=== PATIENT | male | born 1965 | race African-American/Black ===

== ENCOUNTER 2023-09-21 22:23 | Emergency (ER) | payer MEDICAID, OTHER ==
[~2023-09-21] VITALS: Ht 190.5 cm; Wt 84.0 kg
[2023-09-21 23:04] VITALS: O2SAT 100
[2023-09-22] MEDS ORDERED: KETOROLAC 15MG/ML VIAL IM ONE (00:30)
[2023-09-22] MEDS ORDERED: LIDO700A15 TP (03:36)
[2023-09-22 03:45] VITALS: BP 126/88; PULSE 56; RESP 20; TEMP 98.4
== END 2023-09-22 03:54 | disposition home or self-care (01) ==
LOC: ER 22:23
DX: S06.0X0A Concussion without loss of consciousness, initial encounter (principal); S10.93XA Contusion of unspecified part of neck, initial encounter; W06.XXXA Fall from bed, initial encounter; Y93.89 Activity, other specified; Y92.89 Other specified places as the place of occurrence of the external cause; Y99.8 Other external cause status
CPT/HCPCS: 99284